=== PATIENT | female | born 2000 | race Two or more races ===

== ENCOUNTER 2024-07-18 13:05 | Emergency (ER) | payer OTHER ==
[~2024-07-18] VITALS: Ht 160 cm; Wt 65.9 kg
[2024-07-18 13:18] VITALS: BP 129/83; PULSE 88; RESP 16; TEMP 98.3; O2SAT 98
== END 2024-07-18 15:18 | disposition left against medical advice (07) ==
LOC: EMS 13:05
DX: L50.9 Urticaria, unspecified (principal); Z53.21 Procedure and treatment not carried out due to patient leaving prior to being seen by health care provider